=== PATIENT | female | born 1930 | race Caucasian/White ===

== ENCOUNTER 2017-06-17 10:07 | Inpatient (IN) | payer MEDICARE, OTHER ==
[2017-06-17] MEDS: IPRATROPIUM (NEB) 0.5 MG/2.5 ML AMP INH (10:23)
[2017-06-17] MEDS: ALBUTEROL 0.5% (NEB) 2.5 MG/0.5 ML AMP INH (10:23)
[2017-06-17 10:47] LABS: AADO2 Arterial 116.4 mmHg (7.0-24.0); Allen Test ACCEPTAB; Arterial Blood Gas Oxygen Sat 97.3 mmHG (95.0-100.0); Arterial COHb 0.4 % (0.0-3.0); Arterial Fraction of Oxyhgb 96.7 % (93.0-99.0); Arterial HCO3 26.6 mmol/L (22.0-26.0); Arterial MetHb 0.2 % (0.0-1.5); Arterial Total Hemglobin 13.2 g/dl (12.0-18.0); Arterial pCO2 56.8 mmhg (35-45); Blood Gas IEPAP 15/5; MODE MASK - BIPAP; Site Right Radial
[2017-06-17 11:25] LABS: ADD MAN DIFF? NO
[2017-06-17] MEDS: METHYLPREDNISOLONE 125 MG INJ IV (11:25)
[2017-06-17] MEDS: MAGNESIUM SULFATE 2 GM/50 ML 50 ML IVPB (11:26)
[2017-06-17 11:28] LABS: BASOPHIL # 0.1 10^3/ul (0.0-0.1); BASOPHILS % 0.8 % (0.0-2.0); EOSINOPHILS # 0.1 10^3/ul (0.0-0.5); EOSINOPHILS % 1.9 % (0.0-7.0); HEMATOCRIT 39.6 % (37.0-47.0); HEMOGLOBIN 12.5 g/dl (12.0-16.0); LYMPHOCYTES % 13.4 % (15.0-51.0); MEAN CORPUSCULAR HEMOGLOBIN 28.7 pg (29.0-33.0); MEAN CORPUSCULAR HGB CONC 31.6 g/dl (32.0-37.0); MEAN CORPUSCULAR VOLUME 90.8 fl (82.0-101.0); MONOCYTE # 0.6 10^3/ul (0.3-0.9); MONOCYTES % 8.3 % (0.0-11.0); NEUTROPHIL # 5.6 10^3/ul (1.6-7.5); NEUTROPHILS % 74.3 % (39.0-77.0); PLATELET COUNT 209 10^3/UL (140-415); RED BLOOD COUNT 4.36 10^6/ul (4.20-5.40); RED CELL DISTRIBUTION WIDTH 13.2 % (11.5-14.5)
[2017-06-17 11:28] LABS: WHITE BLOOD COUNT 7.5 10^3/ul (4.8-10.8)
[2017-06-17 11:32] LABS: POSITIVE DIFF @See below
[2017-06-17] MEDS: LEVOFLOXACIN 500MG/D5W (PMX) 100 ML IV (11:32)
[2017-06-17 11:53] LABS: AADO2 Arterial 117.1 mmHg (7.0-24.0); Allen Test ACCEPTAB; Arterial Base Excess -0.6 mmol/L (-3.0-3); Arterial Blood Gas Oxygen Sat 97.5 mmHG (95.0-100.0); Arterial COHb 0.2 % (0.0-3.0); Arterial HCO3 26.6 mmol/L (22.0-26.0); Arterial MetHb 0.3 % (0.0-1.5); Arterial Total Hemglobin 13.1 g/dl (12.0-18.0); Blood Gas IEPAP 20/8; MODE MASK - BIPAP; Site Right Radial
[2017-06-17 12:04] LABS: ALANINE AMINOTRANSFERASE 34 IU/L (13-69); ALBUMIN 4.3 g/dl (3.3-4.9); ALBUMIN/GLOBULIN RATIO 1.53; ALKALINE PHOSPHATASE 100 IU/L (42-121); ANION GAP 16 (8-16); ASPARTATE AMINO TRANSFERASE 20 IU/L (15-46); BILIRUBIN,INDIRECT 0.2 mg/dl (0-1.1); BILIRUBIN,TOTAL 0.2 mg/dl (0.2-1.3); BLOOD UREA NITROGEN 15 mg/dl (7-20); CALCIUM 8.8 mg/dl (8.4-10.2); CARBON DIOXIDE 27 mmol/L (21-31); CHLORIDE 101 mmol/L (97-110); CREATININE 0.88 mg/dl (0.44-1.00); GLUCOSE 123 mg/dl (70-220); POTASSIUM 4.9 mmol/L (3.5-5.1); SODIUM 139 mmol/L (135-144); TOTAL PROTEIN 7.1 g/dl (6.1-8.1)
[2017-06-17 12:06] LABS: LACTIC ACID 1.5 mmol/L (0.5-2.0)
[2017-06-17 12:15] LABS: B-TYPE NATRIURETIC PEPTIDE 1130 PG/ML (0-450)
[2017-06-17 12:18] LABS: TROPONIN-I 0.284 ng/ml (0.00-0.12)
[2017-06-17 12:23] LABS: PT RATIO 0.9
[2017-06-17 12:35] LABS: PROTIME 12.2 Sec (11.9-14.9)
[2017-06-17 12:36] LABS: PARTIAL THROMBOPLASTIN TIME 28.7 Sec (25.0-35.0)
[2017-06-17 13:34] LABS: LACTIC ACID 1.4 mmol/L (0.5-2.0)
[2017-06-17] MEDS ORDERED: ACETAMINOPHEN 325 MG TAB PO (14:00)
[2017-06-17] MEDS: ASPIRIN 81 MG TAB PO (14:00)
[2017-06-17] MEDS ORDERED: ONDANSETRON 4 MG INJ IV (14:00)
[2017-06-17] MEDS ORDERED: HEPARIN 1000 UNITS/ML 10 ML INJ IV (15:30)
[2017-06-17] MEDS ORDERED: VANCOMYCIN IV PER PHARMACY XX (15:30)
[2017-06-17] MEDS: LEVOFLOXACIN 750MG/D5W (PMX) 150 ML IVPB (15:30)
[2017-06-17 15:53] LABS: INR 0.87; PARTIAL THROMBOPLASTIN TIME 24.2 Sec (25.0-35.0); PROTIME 11.9 Sec (11.9-14.9); PT RATIO 0.9
[2017-06-17 17:14] LABS: AADO2 Arterial 139.7 mmHg (7.0-24.0); Allen Test ACCEPTAB; Arterial Base Excess 1.1 mmol/L (-3.0-3); Arterial Blood Gas Oxygen Sat 96.8 mmHG (95.0-100.0); Arterial COHb 0.4 % (0.0-3.0); Arterial Fraction of Oxyhgb 96.2 % (93.0-99.0); Arterial HCO3 27.3 mmol/L (22.0-26.0); Arterial MetHb 0.2 % (0.0-1.5); Arterial Total Hemglobin 13.8 g/dl (12.0-18.0); Arterial pCO2 49.8 mmhg (35-45); Blood Gas IEPAP 20/8; Blood Gas PS 12; MODE MASK - BIPAP; Site Right Radial
[2017-06-17 18:41] LABS: ADD UMIC YES; UR ASCORBIC ACID NEGATIVE (NEGATIVE); UR BACTERIA FEW /HPF (NONE SEEN); UR BILIRUBIN (Dip) NEGATIVE (NEGATIVE); UR BLOOD (Dip) 1+ mg/dL (NEGATIVE); UR CLARITY CLEAR (CLEAR); UR COLOR YELLOW (YELLOW); UR GLUCOSE (Dip) NEGATIVE (NEGATIVE); UR KETONES (Dip) TRACE mg/dL (NEGATIVE); UR LEUKOCYTE ESTERASE (Dip) 1+ Leu/ul (NEGATIVE); UR NITRITE (Dip) NEGATIVE (NEGATIVE); UR RBC 1 /HPF (0-5); UR SPECIFIC GRAVITY (Dip) 1.017 (1.003-1.030); UR TOTAL PROTEIN (Dip) 1+ mg/dl (NEGATIVE); UR UROBILINOGEN (Dip) NEGATIVE (NEGATIVE); UR WBC 10 /HPF (0-5)
[2017-06-17] MEDS: VANCOMYCIN 1.5 GM in DEXTROSE 5% 500 ML IVPB (19:06)
[2017-06-17] MEDS: HEPARIN 1000 UNITS/ML 10 ML INJ IV (19:06)
[2017-06-17] MEDS: FUROSEMIDE 20 MG INJ IV (19:16)
[2017-06-17] MEDS: HEPARIN 25000 UNITS/250 ML 250 ML IV (19:24)
[2017-06-17] MEDS: METOPROLOL 25 MG TAB PO (21:41)
[2017-06-17] MEDS: LACTOBACILLUS RHAMNOSUS CAP PO (22:15)
[2017-06-18 01:14] LABS: CREATINE KINASE 86 IU/L (23-200)
[2017-06-18 01:16] LABS: CK INDEX 3.6
[2017-06-18 01:28] LABS: TROPONIN-I 0.168 ng/ml (0.00-0.12)
[2017-06-18] MEDS: LORAZEPAM 2 MG INJ IV ×4 (01:54→23:40)
[2017-06-18 02:53] LABS: INR 0.97
[2017-06-18 06:08] LABS: ADD MAN DIFF? NO
[2017-06-18 06:14] LABS: BASOPHILS % 0.4 % (0.0-2.0); HEMATOCRIT 38.9 % (37.0-47.0); HEMOGLOBIN 12.4 g/dl (12.0-16.0); LYMPHOCYTES # 0.8 10^3/ul (0.8-2.9); LYMPHOCYTES % 11.1 % (15.0-51.0); MEAN CORPUSCULAR HEMOGLOBIN 28.3 pg (29.0-33.0); MEAN CORPUSCULAR HGB CONC 31.9 g/dl (32.0-37.0); MEAN CORPUSCULAR VOLUME 88.8 fl (82.0-101.0); MEAN PLATELET VOLUME 9.4 fl (7.4-10.4); MONOCYTE # 0.8 10^3/ul (0.3-0.9); MONOCYTES % 10.1 % (0.0-11.0); NEUTROPHIL # 5.8 10^3/ul (1.6-7.5); NEUTROPHILS % 76.7 % (39.0-77.0); PLATELET COUNT 225 10^3/UL (140-415); RED BLOOD COUNT 4.38 10^6/ul (4.20-5.40)
[2017-06-18 06:14] LABS: WHITE BLOOD COUNT 7.5 10^3/ul (4.8-10.8)
[2017-06-18 06:37] LABS: CREATINE KINASE 81 IU/L (23-200)
[2017-06-18 06:38] LABS: ANION GAP 13 (8-16); BLOOD UREA NITROGEN 19 mg/dl (7-20); CALCIUM 9.2 mg/dl (8.4-10.2); CARBON DIOXIDE 32 mmol/L (21-31); CHLORIDE 98 mmol/L (97-110); CREATININE 0.94 mg/dl (0.44-1.00); GLUCOSE 150 mg/dl (70-220); MAGNESIUM 1.9 mg/dl (1.7-2.5); POTASSIUM 4.5 mmol/L (3.5-5.1); SODIUM 138 mmol/L (135-144)
[2017-06-18] MEDS: FUROSEMIDE 20 MG INJ IV ×2 (06:42→18:54)
[2017-06-18 06:47] LABS: CK INDEX 4.2; CK-MB 3.41 ng/ml (0.0-2.4); TROPONIN-I 0.116 ng/ml (0.00-0.12)
[2017-06-18 08:47] LABS: AADO2 Arterial 70.3 mmHg (7.0-24.0); Allen Test ACCEPTAB; Arterial Blood Gas Oxygen Sat 99.3 mmHG (95.0-100.0); Arterial COHb 0.3 % (0.0-3.0); Arterial Fraction of Oxyhgb 98.7 % (93.0-99.0); Arterial HCO3 32.2 mmol/L (22.0-26.0); Arterial MetHb 0.3 % (0.0-1.5); Arterial Total Hemglobin 13.5 g/dl (12.0-18.0); Arterial pCO2 72.7 mmhg (35-45); MODE MASK - SIMPLE; Site Right Radial
[2017-06-18] MEDS: METOPROLOL 25 MG TAB PO ×2 (09:01→21:36)
[2017-06-18] MEDS: LACTOBACILLUS RHAMNOSUS CAP PO ×2 (09:01→23:40)
[2017-06-18] MEDS: HYDROXYCHLOROQUINE 200 MG TAB PO (09:16)
[2017-06-18] MEDS: ASPIRIN (EC) 81 MG TAB PO (09:43)
[2017-06-18] MEDS: FOLIC ACID 1 MG TAB PO (09:43)
[2017-06-18 10:16] LABS: INR 0.95; PROTIME 12.8 Sec (11.9-14.9)
[2017-06-18 10:17] LABS: PARTIAL THROMBOPLASTIN TIME 52.7 Sec (25.0-35.0)
[2017-06-18 17:24] LABS: PARTIAL THROMBOPLASTIN TIME 65.5 Sec (25.0-35.0)
[2017-06-18] MEDS: LEVOFLOXACIN 750MG/D5W (PMX) 150 ML IVPB (18:54)
[2017-06-18] MEDS: VANCOMYCIN 1.25 GM in SOD CHLORIDE 0.45% 250 ML IVPB (18:55)
[2017-06-18] MEDS: ATORVASTATIN 10 MG TAB PO (21:35)
[2017-06-19] MEDS: LORAZEPAM 2 MG INJ IV ×2 (05:01→08:43)
[2017-06-19] MEDS: FUROSEMIDE 20 MG INJ IV (05:10)
[2017-06-19] MEDS: ENOXAPARIN 40 MG/0.4 ML SYG SC (08:47)
[2017-06-19] MEDS: METOPROLOL 25 MG TAB PO ×2 (08:52→21:00)
[2017-06-19] MEDS: ASPIRIN (EC) 81 MG TAB PO (08:52)
[2017-06-19] MEDS: HYDROXYCHLOROQUINE 200 MG TAB PO (08:52)
[2017-06-19] MEDS: LACTOBACILLUS RHAMNOSUS CAP PO ×2 (08:52→20:59)
[2017-06-19] MEDS: FOLIC ACID 1 MG TAB PO (08:52)
[2017-06-19] MEDS ORDERED: morphine 2 MG INJ IV (09:00)
[2017-06-19] MEDS ORDERED: ALBUTEROL/IPRATROPIUM (NEB) 3 ML AMP HHN (09:30)
[2017-06-19] MEDS: METHYLPREDNISOLONE 125 MG INJ IV ×3 (12:56→23:58)
[2017-06-19] MEDS: ALBUTEROL/IPRATROPIUM (NEB) 3 ML AMP HHN ×3 (13:00→20:25)
[2017-06-19] MEDS: VANCOMYCIN 1.25 GM in SOD CHLORIDE 0.45% 250 ML IVPB (18:58)
[2017-06-19] MEDS: CEFEPIME 1GM/50 ML (PMX) 50 ML IVPB (20:58)
[2017-06-19] MEDS: ATORVASTATIN 10 MG TAB PO (20:59)
[2017-06-20] MEDS: METHYLPREDNISOLONE 125 MG INJ IV (05:56)
[2017-06-20] MEDS: LORAZEPAM 2 MG INJ IV ×2 (05:56→20:19)
[2017-06-20] MEDS: ALBUTEROL/IPRATROPIUM (NEB) 3 ML AMP HHN ×4 (07:41→21:00)
[2017-06-20] MEDS: FOLIC ACID 1 MG TAB PO (09:39)
[2017-06-20] MEDS: ASPIRIN 81 MG TAB PO (09:39)
[2017-06-20] MEDS: LACTOBACILLUS RHAMNOSUS CAP PO ×2 (09:39→20:18)
[2017-06-20] MEDS: CEFEPIME 1GM/50 ML (PMX) 50 ML IVPB ×2 (09:56→20:18)
[2017-06-20] MEDS: METOPROLOL 25 MG TAB PO ×2 (09:56→20:19)
[2017-06-20] MEDS: ENOXAPARIN 40 MG/0.4 ML SYG SC (09:57)
[2017-06-20] MEDS: METHYLPREDNISOLONE 40 MG INJ IV ×3 (12:00→23:22)
[2017-06-20 19:09] LABS: VANCOMYCIN,TROUGH 8.7 ug/ml (10.0-20.0)
[2017-06-20] MEDS: MONTELUKAST 10 MG TAB PO (20:18)
[2017-06-20] MEDS: ATORVASTATIN 10 MG TAB PO (20:18)
[2017-06-20] MEDS: VANCOMYCIN 750 MG in DEXTROSE 5% 150 ML IVPB (21:12)
[2017-06-21] MEDS: METHYLPREDNISOLONE 40 MG INJ IV ×3 (05:15→20:40)
[2017-06-21 07:22] LABS: ADD MAN DIFF? NO
[2017-06-21 07:30] LABS: WHITE BLOOD COUNT 6.5 10^3/ul (4.8-10.8)
[2017-06-21 07:30] LABS: BASOPHILS % 0.5 % (0.0-2.0); HEMATOCRIT 39.3 % (37.0-47.0); LYMPHOCYTES # 0.6 10^3/ul (0.8-2.9); LYMPHOCYTES % 9.8 % (15.0-51.0); MEAN CORPUSCULAR HEMOGLOBIN 28.6 pg (29.0-33.0); MEAN CORPUSCULAR HGB CONC 33.1 g/dl (32.0-37.0); MEAN CORPUSCULAR VOLUME 86.6 fl (82.0-101.0); MEAN PLATELET VOLUME 9.2 fl (7.4-10.4); MONOCYTE # 0.2 10^3/ul (0.3-0.9); MONOCYTES % 2.8 % (0.0-11.0); NEUTROPHIL # 5.5 10^3/ul (1.6-7.5); NEUTROPHILS % 85.7 % (39.0-77.0); PLATELET COUNT 218 10^3/UL (140-415); RED BLOOD COUNT 4.54 10^6/ul (4.20-5.40)
[2017-06-21 07:45] LABS: ALANINE AMINOTRANSFERASE 28 IU/L (13-69); ALBUMIN 3.8 g/dl (3.3-4.9); ALKALINE PHOSPHATASE 65 IU/L (42-121); ANION GAP 13 (8-16); ASPARTATE AMINO TRANSFERASE 13 IU/L (15-46); BILIRUBIN,INDIRECT 0.2 mg/dl (0-1.1); BILIRUBIN,TOTAL 0.2 mg/dl (0.2-1.3); BLOOD UREA NITROGEN 52 mg/dl (7-20); CALCIUM 8.8 mg/dl (8.4-10.2); CARBON DIOXIDE 34 mmol/L (21-31); CHLORIDE 96 mmol/L (97-110); GLUCOSE 182 mg/dl (70-220); MAGNESIUM 2.1 mg/dl (1.7-2.5); POTASSIUM 4.1 mmol/L (3.5-5.1); SODIUM 139 mmol/L (135-144); TOTAL PROTEIN 6.3 g/dl (6.1-8.1)
[2017-06-21 07:46] LABS: ALBUMIN/GLOBULIN RATIO 1.52
[2017-06-21 07:54] LABS: B-TYPE NATRIURETIC PEPTIDE 836 PG/ML (0-450)
[2017-06-21] MEDS: CEFEPIME 1GM/50 ML (PMX) 50 ML IVPB ×2 (08:27→20:40)
[2017-06-21] MEDS: VANCOMYCIN 750 MG in DEXTROSE 5% 150 ML IVPB ×2 (08:28→20:38)
[2017-06-21] MEDS: ALBUTEROL/IPRATROPIUM (NEB) 3 ML AMP HHN ×4 (08:47→21:39)
[2017-06-21] MEDS: LACTOBACILLUS RHAMNOSUS CAP PO ×2 (09:04→20:39)
[2017-06-21] MEDS: ASPIRIN 81 MG TAB PO (09:04)
[2017-06-21] MEDS: FOLIC ACID 1 MG TAB PO (09:04)
[2017-06-21] MEDS: METOPROLOL 25 MG TAB PO ×2 (09:05→20:39)
[2017-06-21] MEDS: ENOXAPARIN 40 MG/0.4 ML SYG SC (09:05)
[2017-06-21] MEDS: ATORVASTATIN 10 MG TAB PO (20:39)
[2017-06-21] MEDS: MONTELUKAST 10 MG TAB PO (20:39)
[2017-06-22] MEDS: VANCOMYCIN 750 MG in DEXTROSE 5% 150 ML IVPB (08:07)
[2017-06-22] MEDS: ASPIRIN 81 MG TAB PO (08:11)
[2017-06-22] MEDS: METHYLPREDNISOLONE 40 MG INJ IV (08:11)
[2017-06-22] MEDS: FOLIC ACID 1 MG TAB PO (08:11)
[2017-06-22] MEDS: LACTOBACILLUS RHAMNOSUS CAP PO (08:11)
[2017-06-22] MEDS: ENOXAPARIN 40 MG/0.4 ML SYG SC (08:12)
[2017-06-22 08:16] LABS: VANCOMYCIN,TROUGH 18.2 ug/ml (10.0-20.0)
[2017-06-22] MEDS: METOPROLOL 25 MG TAB PO (08:20)
[2017-06-22] MEDS: ALBUTEROL/IPRATROPIUM (NEB) 3 ML AMP HHN (09:00)
[2017-06-22] MEDS: CEFEPIME 1GM/50 ML (PMX) 50 ML IVPB (10:01)
[2017-06-22] MEDS ORDERED: VANCOMYCIN 500MG/NS (PMX) 100 ML IVPB (22:00)
== END 2017-06-22 15:19 | DRG 280 ==
LOC: MS4 06-18 16:02 → E/R 10:07 → REC 06-18 13:38 → MS4 06-18 13:38
PROC: 5A09357 Assistance with Respiratory Ventilation, Less than 24 Consecutive Hours, Continuous Positive Airway Pressure (ICD-10-PCS; principal; 2017-06-18)
DX: I21.A1 Myocardial infarction type 2 (principal); J96.22 Acute and chronic respiratory failure with hypercapnia; J96.21 Acute and chronic respiratory failure with hypoxia; G92 Toxic encephalopathy; N39.0 Urinary tract infection, site not specified; J44.1 Chronic obstructive pulmonary disease with (acute) exacerbation; I10 Essential (primary) hypertension; Z66 Do not resuscitate; Z87.891 Personal history of nicotine dependence; F03.90 Unspecified dementia, unspecified severity, without behavioral disturbance, psychotic disturbance, mood disturbance, and anxiety; I48.0 Paroxysmal atrial fibrillation
CPT/HCPCS: 36600; 71045; 80048; 80053; 80202; 81001; 82550; 82553; 82803; 83605; 83735; 83880; 84484; 85025; 85610; 85730; 87040; 87086; 93005; 93306; 94640; 94644; 94660; 94664; 96374; 96375; 99291-25; J1940